=== PATIENT | female | born 1965 | race Caucasian/White ===

== ENCOUNTER 2024-08-16 23:20 | Emergency (ER) | payer OTHER, SELFPAY ==
[2024-08-16 23:25] VITALS: BP 152/85
[2024-08-16 23:56] LABS: % Basophils 0.1 % (0-2); % Eosinophils 3.2 % (0-6); % Immature Granulocytes 0.6 % (0-0.5); % Lymphocytes 21.6 % (20.5-51.1); % Neutrophils 63.5 % (42.2-75.2); Absolute Eosinophils 0.2 10^3/uL (0-0.7); Absolute Lymphocytes 1.5 10^3/uL (1.2-3.4); Absolute Monocytes 0.8 10^3/uL (0.1-0.6); Absolute Neutrophils 4.3 10^3/uL (1.4-6.5); Hematocrit 40.7 % (37.0-47.0); Hemoglobin 12.6 g/dL (12.0-16.0); Mean Corpuscular Hgb 25.8 pg (27.0-31.0); Mean Corpuscular Volume 83.4 fL (81.0-99.0); Mean Platelet Volume 10.5 fL (7.4-10.4); Nucleated Red Blood Cells % 0 %; Platelet Count 213 10^3/uL (130-400); Red Blood Cell Count 4.88 10^6/uL (4.20-5.40); Red Cell Dist. Width 15.4 % (11.5-14.5); White Blood Cell Count 6.8 10^3/uL (4.8-10.8)
[2024-08-17 00:06] LABS: ALT (SGPT) 23 U/L (0-35); AST (SGOT) 22 U/L (14-36); Albumin 4.3 g/dl (3.5-5.0); Alkaline Phosphatase 102 U/L (38-126); Blood Urea Nitrogen 16 mg/dl (7-17); Calcium 9.1 mg/dl (8.4-10.2); Carbon Dioxide 26 mmol/L (22-30); Chloride 104 mmol/L (98-107); Glucose 123 mg/dl (70-99); Potassium 3.9 mmol/L (3.5-5.1); Sodium 139 mmol/L (135-145); Total Bilirubin 0.2 mg/dl (0.2-1.3); Total Protein 7.1 g/dl (6.3-8.2); eGFR > 60.00
[2024-08-17 00:08] LABS: COVID-19 Antigen Negative (Negative)
[2024-08-17 00:52] VITALS: BMI 32.3
[2024-08-17 00:58] VITALS: BP 142/72
[2024-08-17] MEDS: DUONEB 3 ML INH (01:37)
--- NOTE | 2024-08-17 01:49 | ED.GENMED ---
History of Present Illness
General
Chief Complaint: Breathing Problem
Source: patient and family (Daughter at bedside, helping to interpret for patient)
Exam Limitations: none
Time Seen by Provider: 08/17/24 01:23
Nursing documentation reviewed up to this point in time: agreed with except (Patient saw her primary care physician 1 week ago, started on losartan for hypertension as well as Medrol Dosepak and montelukast)
History of Present Illness
History of Present Illness:
This is a 59-year-old woman with no significant past medical history who complains of persistent hacking nonproductive cough that began 3 weeks ago. Initially evaluated at urgent care 3 weeks ago and prescribed amoxicillin and cough medicine
without relief. She followed up with her PCP 1 week ago and was noted to be hypertensive, started on losartan 25 mg for hypertension and also prescribed a Medrol Dosepak and montelukast.
Despite these medications she continues with hacking cough, dyspnea on exertion. She did note intermittent fever 2 to 3 weeks ago.
No close contacts with similar symptoms. No recent travel.
No history of chronic lung disease. No history of similar episodes in the past.
She does admit to anterior chest discomfort only noted with coughing. No leg pain or swelling. No abdominal pain, no nausea or vomiting, no diarrhea nor constipation.
Past History
Past History
ED Past Medical History: HTN
ED Past Surgical History: Appendectomy
Social History
Tobacco: Non-smoker
Alcohol: None
Living: with family
Family History
Family History: Other (Noncontributory)
Phy Exam
Physical Exam
Physical Exam:
GENERAL: Alert , in no apparent distress. 59-year-old overweight woman appears her stated age, awake and alert, pleasant, appears in no acute distress. Frequent hacking nonproductive cough is noted. Pulse ox 95 to 98% on room air.
EYE: pupils equal and reactive. anicteric
NECK: Supple, nontender, no meningismus, no significant adenopathy. No JVD.
ENT: posterior pharynx is clear, oral mucosa is moist. TM clear b/l, nares patent.
CARDIAC: Regular rate and rhythm. no murmur.
LUNGS: Mild resting tachypnea, frequent hacking nonproductive cough is noted, coarse expiratory wheezing bilaterally.
ABDOMEN: Rotund, soft, nondistended, without focal tenderness, no r/g, no cvat. normoactive BS.
NEUROLOGICAL: Alert and oriented x3, no focal neuro deficits.
SKIN: Warm and dry, normal color, skin intact. No rash.
MUSCULOSKELETAL: No C/C/E. peripheral pulses are full and equal b/l. No palpable tenderness.
PSYCH: Normal and appropriate interaction.
Scores
Heart Failure Risk
Heart Failure Risk Score: Not Applicable
Course
Orders/Labs/Results
Orders:
Orders
08/16/24 23:34
Chest [CR Chest - 2 Views ] Urgent
Comment:
Reason For Exam: shortness of breath
08/16/24 23:46
COVID-19 Antigen Urgent
Source: Nasal Swab
Complete Blood Count/With Diff Urgent
Comprehensive Metabolic Panel Urgent
NT-proBNP Urgent
Comment: ADD ON
Influenza A+B Rapid Molecular Urgent
RAISSA Source: Nasal Swab
Specimen Description:
08/17/24 01:36
Ipratropium/Albuterol Sulfate [Duoneb] 3 ml .ROUTE .STK-MED ONE
08/17/24 01:37
Ipratropium/Albuterol Sulfate [Duoneb] 3 ml INH R NOW ONE
08/17/24 01:48
Doxycycline [Vibramycin] 100 mg PO NOW STA
Prednisone [Deltasone] 50 mg PO NOW STA
08/17/24 01:57
Add On- LAB Urgent
Tests Added?: BNP
Abnormal Lab Results
08/16/24
23:46
MCH 25.8 L pg
(27.0-31.0)
MCHC 31.0 L g/dL
(33.0-37.0)
RDW 15.4 H %
(11.5-14.5)
MPV 10.5 H fL
(7.4-10.4)
Absolute Monos (auto) 0.8 H 10^3/uL
(0.1-0.6)
Immature Gran % 0.6 H %
(0-0.5)
Monocytes % 11.0 H %
(1.7-9.3)
Glucose 123 H mg/dl
(70-99)
08/16/24 23:46
08/16/24 23:46
Vital Signs
Initial and Last Documented VS:
Initial Vital Signs
Temp Pulse Resp BP Pulse Ox
98.2 F 100 20 152/85 97
08/16/24 23:25 08/16/24 23:25 08/16/24 23:25 08/16/24 23:25 08/16/24 23:25
Last Documented Vital Signs
Temp Pulse Resp BP Pulse Ox
98.2 F 92 26 132/75 96
08/16/24 23:25 08/17/24 03:15 08/17/24 03:15 08/17/24 03:00 08/17/24 03:15
MDM/Problems Addressed
Differential Diagnosis Includes:
Concern for persistent asthmatic bronchitis, atypical pneumonia, less likely CHF/cardiac wheeze.
Overall appears euvolemic. Frequent cough is noted otherwise no respiratory distress. Pulse ox within normal limits.
Labs are reassuring, within normal limits. COVID and influenza testing are negative.
Chest x-ray however shows patchy airspace disease left mid lung field consistent with infiltrate.
Will give DuoNeb nebulizer as well as an oral dose of prednisone. Will add doxycycline for coverage of community-acquired pneumonia/atypicals
Systolic blood pressure mildly elevated initially, has improved to 142/72. Recently began losartan just 1 week ago for hypertension.
Chronic conditions affecting care: HTN
*Radiology
Radiology exam reviewed: preliminary read by ED provider (Chest x-ray shows patchy airspace disease left mid to left lower lung zone. Normal heart size.)
*Pulse Oximetry
Patient hypoxic: no
*De Icer Interpretation
Rate: normal
Interpretation: normal
Rhythm: sinus
*Critical Care Note
Total Time (30-74mins, 75-104mins- exclusive of procedures): Not Applicable
Update Note
Update Note:
03:10
Patient feeling improved after nebulizer treatment. Much less cough, less wheezing.
BNP is normal, less than 20.
Will discharge to home with 10-day course of doxycycline, prednisone taper and prescription for albuterol inhaler.
Prompt follow-up with PCP for recheck.
Return precautions discussed.
ED Attending Note
-
Portions of this chart may have been created with voice recognition software.� Occasional wrong word or��sound alike� substitutions may have occurred due to the inherent limitations of voice recognition software.
Discharge Plan
Departure
Patient Disposition: Home (Routine Discharge)
Date of Disposition: 08/17/24
Time of Disposition: 03:13
Patient with high blood pressure during this ER visit?: No
Condition: Good
Discharge Problem:
Community acquired pneumonia, Asthmatic bronchitis
Instructions: Acute Bronchitis, Adult (DC), Community-acquired pneumonia in adults, How to Use a Metered Dose Inhaler ED
Prescriptions:
New
albuterol sulfate 90 mcg/actuation aerosol powdr breath activated
2 inh inhalation QIDPRN PRN (Reason: shortness of breath or wheezing) Qty: 1 0RF
doxycycline monohydrate 100 mg capsule
100 mg PO BID Qty: 20 1RF
prednisone 10 mg Tablet
See Rx Instructions .ROUTE .COMPLEX Qty: 45 0RF
Rx Instructions:
Take By Mouth:
50 mg daily x3 days, 40 mg daily x3 days,
30 mg daily x3 days, 20 mg daily x3 days,
10 mg daily x3 days
Referrals:
Elder Oliver MD [Family Provider] - Call in 1-3 days for appt
Interventions
Interventions:
*Risk Screen - Suicide Last Done: 08/16/24 23:30
*General Assessment Last Done: 08/16/24 23:30
*Neglect/Abuse Screening Last Done: 08/17/24 00:52
ED- Fall Risk Assessment Last Done: 08/17/24 03:15
*ED COVID-19 Vaccine History Last Done: 08/16/24 23:30
*Nursing Disposition Last Done: 08/17/24 03:15
ED- Cardiac Assessment Last Done: 08/17/24 00:52
ED- Pulmonary Assessment Last Done: 08/17/24 00:52
Discharge Date and Time
Discharge Date/Time: 08/17/24 03:25
Print Language: [id number]
[2024-08-17 02:00] VITALS: BP 132/75
[2024-08-17] MEDS: VIBRAMYCIN 100 MG PO (02:07)
[2024-08-17] MEDS: DELTASONE 50 MG PO (02:07)
[2024-08-17 02:28] LABS: NT-proBNP < 20.0 pg/ml
[2024-08-17 03:00] VITALS: BP 132/75
== END 2024-08-17 03:25 | disposition home or self-care (01) ==
LOC: EMR 23:20
PROVIDERS: EMERGENCY PHYSICIAN Emergency Medicine; FAMILY PHYSICIAN Internal Medicine
DX: J18.9 Pneumonia, unspecified organism (principal); J45.909 Unspecified asthma, uncomplicated; I10 Essential (primary) hypertension
CPT/HCPCS: 94640; 99284; 71046; 80053; 83880; 85025; 87502; 87811

== ENCOUNTER → 2024-09-30 07:31 | Outpatient (REF) | payer OTHER, SELFPAY ==
[2024-09-30] MEDS: FLUSH (NSS) 1 FLUSH IV (09:23)
[2024-09-30] MEDS: LEXISCAN 0.4 MG IV (09:23)
== END ==
LOC: RCS 07:31
PROVIDERS: ATTENDING PHYSICIAN Internal Medicine Cardiovascular Disease; FAMILY PHYSICIAN Internal Medicine
DX: R06.00 Dyspnea, unspecified (principal)
CPT/HCPCS: 78452; 93017; A9500; J2785